=== PATIENT | female | born 1950 | race Caucasian/White ===

== ENCOUNTER 2021-02-24 10:06 | Outpatient (CLI) | payer MEDICARE, SELFPAY ==
--- NOTE | ~2021-02-24 | US_ITS ---
EXAMINATION: US thyroid DATE: 02/24/2021 10:34 INDICATION: Nontoxic multinodular goiter. TECHNIQUE: Multiple ultrasound images of the thyroid were obtained. COMPARISON: Ultrasound 03/13/2018, 02/10/2019 FINDINGS: The right thyroid lobe measures 5.8 x 1.5 x 1.5 cm. The left thyroid lobe measures 4.3 x 1.2 x 2.0 c m. There are greater than 10 scattered nodules in the thyroid, most of which measure less than 1 cm. There is diffuse increased vascularity in the thyroid. In the left thyroid lobe, there is a 15 mm so lid, hypoechoic, [id number]-[id number]-yfop nodule with ill-defined margin without echogenic foci (TI-RADS TR4). This nodule is stable from 03/20/2018 when fine-needle aspiration demonstrated benign pathology. IMPRESSION: 1. Stable multinodular goiter, likely not clinically significant. Reviewed, dictated and finalized at location A.
== END 2021-02-24 10:07 | disposition home or self-care (01) ==
PROVIDERS: PCP Family Medicine; Visit Provider Otolaryngology
DX: E04.2 Nontoxic multinodular goiter (principal)
CPT/HCPCS: 76536

== ENCOUNTER 2021-05-04 15:50 | Outpatient (CLI) | payer MEDICARE, SELFPAY ==
--- NOTE | ~2021-05-04 | MM_ITS ---
EXAMINATION: MM screening [facility] BI w maggy HISTORY: Screening mammogram TECHNIQUE: Craniocaudal and mediolateral oblique 3-D tomosynthesis images were obtained and synthetic 2-D images were generated. CAD analysis was submitted and interpreted. COMPARISON: 11/25/2019, 07/08/2018, 16/04/2018 BREAST PARENCHYMAL COMPOSITION: There are scattered areas of fibroglandular density. FINDINGS: Scattered benign-appearing calcifications are present. There is no evidence of suspicious m ass, calcification, or architectural distortion to suggest malignancy in either breast. There has bee n no suspicious interval change. IMPRESSION: 1. No mammographic evidence of malignancy. 2. Recommend routine screening mammography in one year. BI-RADS Category 2: Benign finding(s). Reviewed, dictated and finalized at location A.
== END 2021-05-04 15:51 | disposition home or self-care (01) ==
LOC: ANHIMG 15:51
PROVIDERS: PCP Family Medicine; Visit Provider Family Medicine
DX: Z12.31 Encounter for screening mammogram for malignant neoplasm of breast (principal)
CPT/HCPCS: 77063; 77067

== ENCOUNTER 2022-01-06 08:35 | Outpatient (CLI) | payer MEDICARE, SELFPAY ==
--- NOTE | ~2022-01-06 | US_ITS ---
EXAMINATION: US abdomen complete EXAM DATE: 01/06/2022 09:08 INDICATION: R10.32 - Left lower quadrant pain. TECHNIQUE: Multiple grayscale and Doppler images of the complete abdomen were obtained (by a technolo gist who performed the scan) and subsequently reviewed. There is no prior study for comparison. FINDINGS: The abdominal aorta is normal in caliber. Visualized portion IVC is patent. The pancreatic head a nd body are normal in appearance. The pancreatic tail is not visualized. The liver has normal echogenicity and contour. There are no focal liver lesions identified. There is no evidence of intrahepatic biliary duct dilation. Portal venous flow was seen in the hepatopedal , normal direction and has normal Doppler waveform. Common bile duct measures 5 mm, which is normal. The gallbladder wall is normal in thickness, with ex pected amount of distention. No sonographic evidence of pericholecystic fluid. Several gallstones i dentified. Technologist performing exam reports patient did not demonstrate sonographic Arias's sig n. Please note that this sign is less reliable in patients who have received pain medication. Right kidney: There is normal contour and echogenicity. It measures 10.2 x 4.1 x 3.9 centimeters. There are no focal renal lesions identified. There is no hydronephrosis. Left kidney: There is normal contour and echogenicity. It measures 11.6 x 5.0 x 4.8 centimeters. Le ft renal cyst measuring 2 cm. There is no hydronephrosis. The spleen measures 8.4 centimeters and is morphologically normal. IMPRESSION: Cholelithiasis. Reviewed, dictated and finalized at location A. OMER SPECIALIST IMPRESSION: Cholelithiasis.
== END 2022-01-06 08:36 | disposition home or self-care (01) ==
LOC: ANHIMG 08:37
PROVIDERS: PCP Family Medicine; Visit Provider Nurse Practitioner
DX: R10.32 Left lower quadrant pain (principal); K80.80 Other cholelithiasis without obstruction
CPT/HCPCS: 76700

== ENCOUNTER 2022-05-31 11:09 | Outpatient (CLI) | payer MEDICARE, SELFPAY ==
--- NOTE | ~2022-05-31 | US_ITS ---
EXAMINATION: US thyroid DATE: 05/31/2022 11:52 INDICATION: Nontoxic multinodular goiter. TECHNIQUE: Multiple ultrasound images of the thyroid were obtained. COMPARISON: Ultrasound 02/24/2021, 08/05/2018, 03/13/2018 FINDINGS: The right thyroid lobe measures 4.9 x 1.5 x 1.8 cm. The left thyroid lobe measures 4.9 x 1.6 x 2.1 c m. There are greater than 10 nodules in the thyroid. In the right thyroid lobe, there is a 10 mm mix ed cystic and solid, hypoechoic, wider than tall nodule with lobulated margin without echogenic foci (TI-RADS TR4), stable from 03/13/18. In the right thyroid lobe, there is a 12 mm mixed cystic and chela d, isoechoic, wider than tall nodule with lobulated margin without echogenic foci (TR4), stable from 03/13/18. In the left thyroid lobe, there is a 13 mm solid, hypoechoic, wider than tall nodule with lo bulated margin without echogenic foci (TR4), stable from 03/20/18 when biopsy was benign. In the left thyroid lobe, there is a 14 mm mixed cystic and solid, hypoechoic, wider than tall nodule with smooth margin without echogenic foci (TR3). IMPRESSION: 1. Multinodular goiter. Consider thyroid ultrasound in 2 years. Reviewed, dictated and finalized at location A.
== END 2022-05-31 11:10 | disposition home or self-care (01) ==
PROVIDERS: PCP Family Medicine; Visit Provider Nurse Practitioner
DX: E04.2 Nontoxic multinodular goiter (principal)
CPT/HCPCS: 76536

== ENCOUNTER 2022-07-05 11:35 | Outpatient (CLI) | payer MEDICARE, SELFPAY ==
--- NOTE | ~2022-07-05 | DEXA_ITS ---
Bone Density Report Name: JOSE A KING Age: 71 Sex: Female Ethnicity: White Date of : 1950 Indication: postmenopausal; screening for osteoporosis; Referring Provider: ADIS BRISCOE Study: Bone densitometry was performed. Exam Date: July 05, 2022 Accession number: [id number] Bone Density: Region BMD T-score Z-score Classification AP Spine(L1-L4) 1.010 -0.3 1.8 Normal Femoral Neck (Left) 0.596 -2.3 -0.4 Osteopenia Total Hip (Left) 0.766 -1.4 0.1 Osteopenia World Health Organization criteria for BMD impression classify patients as: Normal (T-score at or above -1.0), Osteopenia (T-score between -1.0 and -2.5), or Osteoporosis (T-score at or below -2.5). 10-year Fracture Risk(1): Major Osteoporotic Fracture 13% Hip Fracture 3.0% Reported Risk Factors: [place] (), Neck BMD=0.596, BMI=25.4 (1) FRAX(R) Version 3.08. Fracture probability calculated for an untreated patient. Fracture probability may be lower if the patient has received treatment. Clinical Information Provided by Patient: Has used the following medications: Calcium Patient maximum height was 62.5 No regular weight bearing exercise Drinks caffeinated beverages Onset of menses at age 15 Number of children 3 Impression: The patient has low bone mass, based on the Left Femoral Neck T-score. The patient has an estimated ten-year risk of hip fracture of 3% and an estimated ten-year risk of major fracture of 13%, based on the WHO FRAX algorithm. Discussion: BONE DENSITY IS LOW AT ONE OR MORE SKELETAL SITES. THE PATIENT'S BMD AND CLINICAL RISK FACTORS CONTRIBUTE TO THIS PATIENT'S INCREASED RISK OF FRACTURE. This patient's lowest T-score is low at one or more skeletal sites. It meets the World Health Organization's (WHO) criteria for ?low bone mass? (T-score between -1.0 and -2.5). The patient's 10-year risk of hip fracture as calculated by FRAX exceeds the threshold where pharmacological therapy is recommended by the National Osteoporosis Foundation (NOF). However, all treatment decisions require clinical judgment and consideration of individual patient factors, including patient preferences, comorbidities, previous drug use, risk factors not captured in the FRAX model (e.g., frailty, falls, vitamin D deficiency, increased bone turnover, interval significant decline in bone density) and possible under or overestimation of fracture risk by FRAX. The patient should follow a healthful lifestyle (good nutrition with adequate calcium and vitamin D, and appropriate weight-bearing exercise). Follow-Up: Consider a repeat BMD and Vertebral Fracture Assessment (VFA) exam in 2 years or sooner if medically necessary, to reassess this patient's status. Reported by: YASMEEN on 07/05/2022 12:17:00 PM. twila Sanchez
--- NOTE | ~2022-07-05 | MM_ITS ---
EXAMINATION: MM screening [facility] BI w maggy HISTORY: Screening mammogram TECHNIQUE: Craniocaudal and mediolateral oblique 3-D tomosynthesis images were obtained and synthetic 2-D images were generated. CAD analysis was submitted and interpreted. COMPARISON: 05/04/2021, 11/25/2019 bilateral screening mammogram examinations BREAST PARENCHYMAL COMPOSITION: There are scattered areas of fibroglandular density. FINDINGS: Stable small circumscribed low-density bilateral benign appearing intramammary lymph nodes. There is no evidence of suspicious mass, calcification, or architectural distortion to suggest malig iris in either breast. There has been no suspicious interval change. IMPRESSION: 1. No mammographic evidence of malignancy. 2. Recommend routine screening mammography in one year. BI-RADS Category 2: Benign finding(s). Reviewed, dictated and finalized at location A.
== END 2022-07-05 11:36 | disposition home or self-care (01) ==
PROVIDERS: PCP Family Medicine; Visit Provider Nurse Practitioner
DX: Z12.31 Encounter for screening mammogram for malignant neoplasm of breast (principal); Z78.0 Asymptomatic menopausal state; M85.852 Other specified disorders of bone density and structure, left thigh
CPT/HCPCS: 77063; 77067; 77080

== ENCOUNTER 2023-05-30 09:01 | Outpatient (CLI) | payer MEDICARE, SELFPAY ==
--- NOTE | ~2023-05-30 | US_ITS ---
EXAMINATION: US thyroid DATE: 05/30/2023 10:24 INDICATION: Nontoxic multinodular goiter TECHNIQUE: Multiple ultrasound images of the thyroid were obtained. COMPARISON: 05/31/2022 FINDINGS: The right thyroid lobe measures 5.3 x 1.8 x 1.7 cm. The left thyroid lobe measures 5.0 x 2 0.1, 1.6 cm. Again seen are numerous nodules in the left and right thyroid lobes. The 2 largest nodules in th e right thyroid lobe including 1.2 cm wider than tall spongiform nodule with smooth margins with mult iple internal echogenic foci which on cine imaging on the most recent prior study demonstrate promine nt comet tail artifact and a second 1.4 cm wider than tall predominately cystic nodule, both (TI-RADS 1, benign, no FNA recommended) and without significant interval change. The 2 largest nodules in the left thyroid lobe including an unchanged 1.2 cm wider than tall predominant cystic TI RADS 1 nodule and a 1.3 cm solid hypoechoic wider than tall nodule with lobulated margins without echogenic foci (T I-RADS 4, moderately suspicious , FNA if >=1.5 cm, annual followup is >=1 cm) which was previously bi opsied with benign pathology on 03/13/2018. IMPRESSION: 1. Stable appearance of a multinodular goiter. Consider 1-2 year follow-up thyroid ultrasound. Reviewed, dictated and finalized at location A. IMPRESSION: 1. Stable appearance of a multinodular goiter. Consider 1-2 year follow-up thyr oid ultrasound.
== END 2023-05-30 09:02 | disposition home or self-care (01) ==
PROVIDERS: PCP Family Medicine; Visit Provider Nurse Practitioner Family
DX: E04.2 Nontoxic multinodular goiter (principal)
CPT/HCPCS: 76536

== ENCOUNTER 2023-08-09 11:00 | Outpatient (CLI) | payer MEDICARE, SELFPAY ==
--- NOTE | ~2023-08-09 | CT_ITS ---
Non-contrast Head CT History: Headache Technique: Axial non-contrast imaging of the brain was performed. Dose reduction technique was used on this scan by utilizing automated exposure control and iterative reconstruction technique. The dose -length product (DLP) was 605.33 mGy-cm. Findings: There is no evidence of intracranial hemorrhage, mass lesion, or acute infarct. Brain par enchyma appears normal. The ventricles and subarachnoid spaces are normal in size. The calvarium ap pears normal. The visualized paranasal sinuses and mastoid air cells are clear. Impression: No significant abnormality seen. Reviewed, dictated and finalized at location . Impression: No significant abnormality seen.
== END 2023-08-09 11:01 | disposition home or self-care (01) ==
PROVIDERS: PCP Family Medicine; Visit Provider Nurse Practitioner Family
DX: R51.9 Headache, unspecified (principal); G89.29 Other chronic pain
CPT/HCPCS: 70450

== ENCOUNTER 2024-09-03 14:44 | Outpatient (CLI) | payer MEDICARE, SELFPAY ==
--- NOTE | ~2024-09-03 | MM_ITS ---
EXAMINATION: MM screening [facility] BI w maggy HISTORY: Screening TECHNIQUE: Craniocaudal and mediolateral oblique 3-D tomosynthesis images were obtained and synthetic 2-D images were generated. CAD analysis was submitted and interpreted. COMPARISON: Comparison to multiple prior studies sequentially, with oldest reviewed study dated 06/20. BREAST PARENCHYMAL COMPOSITION: Not dense: There are scattered areas of fibroglandular density. FINDINGS: There is no evidence of suspicious mass, calcification, or architectural distortion to sugg est malignancy in either breast. There has been no suspicious interval change. IMPRESSION: 1. No mammographic evidence of malignancy. 2. Recommend routine screening mammography in one year. BI-RADS Category 1: Negative Reviewed, dictated and finalized at location B. SCHOOL FOREIGN LANGUAGE TEACHER
--- NOTE | ~2024-09-03 | DEXA_ITS ---
Bone Density Report Name: JOSE A KING Age: 73 Sex: Female Ethnicity: White Date of : 1950 Indication: osteopenia; cancer; Referring Provider: ALFREDO DISLA Study: Bone densitometry was performed. Exam Date: September 03, 2024 Accession number: [id number] Bone Density: Region BMD T-score Z-score Classification AP Spine(L1-L4) 0.958 -0.8 1.5 Normal Femoral Neck (Left) 0.605 -2.2 -0.2 Osteopenia Total Hip (Left) 0.799 -1.2 0.5 Osteopenia World Health Organization criteria for BMD impression classify patients as: Normal (T-score at or above -1.0), Osteopenia (T-score between -1.0 and -2.5), or Osteoporosis (T-score at or below -2.5). 10-year Fracture Risk(1): Major Osteoporotic Fracture 13% Hip Fracture 3.2% Reported Risk Factors: [place] (), Neck BMD=0.605, BMI=26.2 (1) FRAX(R) Version 3.08. Fracture probability calculated for an untreated patient. Fracture probability may be lower if the patient has received treatment. Previous Exams: Region Exam Age BMD T-score BMD Change BMD Change Date g/cm2 vs Baseline vs Previous AP Spine (L1-L4) 09/03/2024 73 0.958 -0.8 -0.007 (-0.7%) -0.052 (-5.1%) 07/05/2022 71 1.010 -0.3 0.045 (4.7%)* 0.023 (2.3%) 11/25/2019 69 0.988 -0.5 0.023 (2.4%)* 0.023 (2.4%)* 02/08/2016 65 0.965 -0.7 Total Hip(Left) 09/03/2024 73 0.799 -1.2 -0.014 (-1.8%) 0.032 (4.2%)* 07/05/2022 71 0.766 -1.4 -0.047 (-5.8%) -0.094 (-11.0% 11/25/2019 69 0.861 -0.7 0.047 (5.8%)* 0.047 (5.8%)* 02/08/2016 65 0.813 -1.1 *Denotes significance at 95% confidence level, LSC for AP Spine = 0.022 g/cm2, LSC for Total Hip = 0.027 g/cm2 Clinical Information Provided by Patient: Has used the following medications: Vitamin D, Calcium Has the following medical conditions: Cancer Patient maximum height was 62.5 Menopause Age: 53 Drinks caffeinated beverages Onset of menses at age 13 Number of children 3 Impression: The patient has low bone mass, based on the Left Femoral Neck T-score. The patient has an estimated ten-year risk of hip fracture of 3.2% and an estimated ten-year risk of major fracture of 13%, based on the WHO FRAX algorithm. The BMD for the AP Spine (L1-L4) decreased, changing by -5.1% since the last DXA exam. Discussion: BONE DENSITY IS LOW AT ONE OR MORE SKELETAL SITES. THE PATIENT'S BMD AND CLINICAL RISK FACTORS CONTRIBUTE TO THIS PATIENT'S INCREASED RISK OF FRACTURE. This patient's lowest T-score is low at one or more skeletal sites. It meets the World Health Organization's (WHO) criteria for ?low bone mass? (T-score between -1.0 and -2.5). The patient's 10-year risk of hip fracture as calculated by FRAX exceeds the threshold where pharmacological therapy is recommended by the National Osteoporosis Foundation (NOF). However, all treatment decisions require clinical judgment and consideration of individual patient factors, including patient preferences, comorbidities, previous drug use, risk factors not captured in the FRAX model (e.g., frailty, falls, vitamin D deficiency, increased bone turnover, interval significant decline in bone density) and possible under or overestimation of fracture risk by FRAX. The patient should follow a healthful lifestyle (good nutrition with adequate calcium and vitamin D, and appropriate weight-bearing exercise). Follow-Up: Consider a repeat BMD and Vertebral Fracture Assessment (VFA) exam in 2 years or sooner if medically necessary, to reassess this patient's status. Reported by: GIUSEPPE on 09/03/2024 3:17:00 PM. Reviewed, dictated and finalized at location A. JUNG
== END 2024-09-03 14:45 | disposition home or self-care (01) ==
LOC: ANHIMG 14:45
PROVIDERS: PCP Family Medicine; Visit Provider Student in an Organized Health Care Education/Training Program
DX: Z12.31 Encounter for screening mammogram for malignant neoplasm of breast (principal); M85.89 Other specified disorders of bone density and structure, multiple sites; Z78.0 Asymptomatic menopausal state
CPT/HCPCS: 77063; 77067; 77080

== ENCOUNTER 2025-06-15 14:08 | Outpatient (CLI) | payer MEDICARE, SELFPAY ==
--- NOTE | ~2025-06-15 | US_ITS ---
EXAMINATION: US thyroid DATE: 06/15/2025 14:59 INDICATION: Multinodular goiter TECHNIQUE: Multiple ultrasound images of the thyroid were obtained. COMPARISON: 05/30/2023 FINDINGS: The right thyroid lobe measures 4.8 x 1.2 x 1.6 cm. The left thyroid lobe measures 4.5 x 1.6 x 2.3 cm. Again seen are numerous bilateral thyroid nodules which include cystic, mixed solid and cystic, spongiform and solid nodules. The 2 largest nodules in the right thyroid lobe including 1.2 cm wider than tall nearly entirely cystic nodule in the inferior left thyroid lobe. (TI-RADS 1, benign, no FNA recommended). The next largest is a 9-10 mm wider than tall mixed solid and cystic nodule with smooth margins and hypoechoic solid component without echogenic foci (TI-RADS 3, mildly suspicious , FNA if >=2.5 cm, annual followup is >=1.5 cm). No significant interval change in the largest left thyroid nodules which is a 1.3 cm solid hypoechoic nodule with lobular margins and without echogenic foci (TI-RADS 4, moderately suspicious , FNA if >=1.5 cm, annual followup is >=1 cm) and which was present for the biopsied with benign pathology on 03/13/2018. The next largest left thyroid nodules are a 1.2 cm Ti RADS 1 cystic nodule and a 1.0 cm Ti RADS 3 mixed solid and cystic nodule with hypoechoic solid component, smooth margins and without echogenic foci. IMPRESSION: 1. Stable appearance of a multinodular goiter. Consider 1-2 year follow-up thyroid ultrasound. Reviewed, dictated and finalized at location A. IMPRESSION: 1. Stable appearance of a multinodular goiter. Consider 1-2 year follow-up thyr oid ultrasound.
--- OUTSIDE RECORDS SUMMARY | 2025-06-15 15:12 | XMS_ITS | Clinical Summary ---
Author Organization [facility] Address [address] [place] [address] Care Team Providers Care Key Carrier Name Role Phone Anne-Marie Wilson MD Primary Care Provider Source Comments [facility],non-owned Affiliates and Associated Physician Practices is amultiple site organization consisting of ambulatory clinics and hospital sitesin [place], [place], [place] and [place]. This disclosure is being madepursuant to the Care Everywhere program and may not contain all information available regarding this patient. Last updated 18.[facility] Allergies No known active allergies Medications * Be aware that medications may not be up to date on this document. Alwaysverify current medications with the patient. atenolol (TENORMIN) 25 MG tablet Take 25 mg by mouth once daily Active hydroCHLOROthiaz jovanny (HYDRODIURIL) 25 MG tablet Take 25 mg by mouth once daily 08/30/2012 Active FIBER PO Take 1 Tab by mouth once daily Active Calcium Citrate-Vitamin D (CALCIUM + D PO) Take 1 Tab by mouth once daily Active Active Problems Problem Noted Date Diagnosed Date Primary osteoarthritis of right hip Social History Tobacco Use Types Packs/Day Years Used Date Smoking Tobacco: Never Smokeless Tobacco: Never Alcohol Use Standard Drinks/Week Comments Yes 0 (1 standard drink = 0.6 oz pur e alcohol) Comments No Sex and Gender Information Value Date Recorded Sex Assigned at Not on file Legal Sex Female 9:27 AM PATIENT INTAKE COORDINATOR Gender Identity Not on file Sexual Orientation Not on file Last Filed Vital Signs Vital Sign Reading Time Taken Comments Blood Pressure 132/61 11/29/2016 8:15 AM PATIENT INTAKE COORDINATOR Pulse 78 11/29/2016 8:15 AM PATIENT INTAKE COORDINATOR Temperature 37.1 C (98.7 F) 11/29/2016 8:15 AM PATIENT INTAKE COORDINATOR Respiratory Rate 18 11/29/2016 8:15 AM PATIENT INTAKE COORDINATOR Oxygen Saturation 99% 11/29/2016 8:15 AM PATIENT INTAKE COORDINATOR Inhaled Oxygen Concentration - - Weight 62.6 kg (138 lb) 11/21/2018 9:32 AM PATIENT INTAKE COORDINATOR Height 157.5 cm (5' 2) 11/21/2018 9:32 AM PATIENT INTAKE COORDINATOR Body Mass Index 25.24 11/21/2018 9:32 AM PATIENT INTAKE COORDINATOR Plan of Treatment Health Maintenance Due Date Last Done Comments BONE DENSITY TESTING 1950 COLOGUARD (AGES 45-75) - COL ON CA SCREENING 1950 COLON MONITORING 1950 COLONOSCOPY - COLON CA SCREENING 1950 CT COLONOGRAPHY - COLON CA SCREENING 1950 Colorectal Cancer Screening 1950 FIT - COLON CA SCREENING 1950 FLEX SIG - COLON CA SCREENING 1950 LIPID TESTING 1950 MAMMOGRAM 1950 HEPATITIS C SCREENING 10/02/1969 DTAP/TDAP/TD VACCINES (1 - Tdap) 1970 PNEUMOCOCCAL VACCINE 50+ (1 of 1 - PCV) 2001 ZOSTER VACCINE (1 of 2) 2001 COVID-19 VACCINE ( - 2023-2 5 season) 2024 DEPRESSION SCREENING 10/29/2024 INFLUENZA VACCINE (#1) 2025 Respiratory Syncytial Virus (RSV) Vaccine Pt: or over 60 yrs (1 - 1-dose 75+ series) 2026 HEPATITIS B VACCINE Aged Out No longe r eligible based on patient's age to complete this topic HIB VACCINE Aged Out No longer eligi ble based on patient's age to complete this topic HPV VACCINE Aged Out No longer eligi ble based on patient's age to complete this topic MENINGOCOCCAL (Group B) VACC INE SHARED DECISION-MAKING Aged Out No longer eligibl e based on patient's age to complete this topic MENINGOCOCCAL GROUPS A/C/Y/W VACCINE Aged Out No longer eligible b ased on patient's age to complete this topic Medical Devices Implanted Type Area Orchestra Leader Device Identifier Shelf Expiration Date Model / Serial / Lot Acetabular System With Holes Implanted:Qty: 1 on 11/28/2016 by Sarthak Banuelos MD at [facility] Right: Hip [employer] 03/28/2026 / / [id number] Bone Screw Implanted:Qty: 1 on 11/28/2016 by Sarthak Banuelos MD at [facility] Right: Hip [employer] 07/28/2026 / / [id number] Acetabular System Standard Crosslinked Polyethylene Implanted:Qty: 1 on 11/28/2016 by Sarthak Banuelos MD at [facility] Right: Hip [employer] 01/26/2021 / / [id number] Femoral Head Implanted:Qty: 1 on 11/28/2016 by Sarthak Banuelos MD at [facility] Right: Hip [employer] / / [id number] Hip Stem Implanted:Qty: 1 on 11/28/2016 by Sarthak Banuelos MD at [facility] Right: Hip [employer] 04/27/2026 [id number] / / [id number] Cong Uncem Hip All Inclusive Implanted:Qty: 1 on 11/28/2016 by Sarthak Banuelos MD at [facility] [employer] BILL ONLY [employer] HIP ALL INCLUSIVE LEXIE / / Insurance MEDICARE ANTHEM MEDICARE SUPPLEMENT PAYOR GENERIC MEDICARE [facility] Advance Directives * Full Code (Latest Code Status on File) Date Activated Date Inactivated Comments 11/28/2016 10:44 AM 11/29/2016 3:06 PM Care Teams Key Carrier Relationship Specialty Start Date End Date Anne-Marie Wilson MD [address] [place] [address] PCP - General 11/24/19
--- OUTSIDE RECORDS SUMMARY | 2025-06-15 15:12 | XMS_ITS | Encounter Summary ---
Author Organization [facility] Address [address] [facility] [place] [address] Care Team Providers Care School Examiner Name Role Phone Anne-Marie Wilson MD Primary Care Provider Encounter Details Date Type Department Care Team (Late st Contact Info) Description 01/07/2020 Lab Requisition [facility] [address] [facility] [place] [address] [place] [place] [address] Social History Tobacco Use Types Packs/Day Years Used Date Smoking Tobacco: Never Smokeless Tobacco: Never Alcohol Use Standard Drinks/Week Comments Yes 0 (1 standard drink = 0.6 oz pur e alcohol) Comments No Sex and Gender Information Value Date Recorded Sex Assigned at Not on file 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 Answer Date of Assessment Author No 11/28/2016 6:47 AM Nolan Douglas RN * Is person blind or have serious difficulty seeing? Answer Date of Assessment Author No 11/28/2016 6:47 AM Nolan Douglas RN * Does person have serious difficulty walking/climbing stairs? Answer Date of Assessment Author No 11/28/2016 6:47 AM Nolan Douglas RN * Does person have difficulty dressing/bathing? Answer Date of Assessment Author No 11/28/2016 6:47 AM Nolan Douglas RN * Does person have difficulty doing errands alone? Answer Date of Assessment Author No 11/28/2016 6:47 AM Nolan Douglas RN documented as of this encounter Mental Status * Does person have difficulty concentrating/remembering/making decisions? Answer Entry Date Author No 11/28/2016 6:47 AM Nolan Douglas RN documented in this encounter Plan of Treatment Not on file documented as of this encounter Procedures Procedure Name Priority Date/Time Associated Diagnosis Comments DERMATOPATHOLOGY Routine 01/06/2020 12:0 0 AM CDT documented in this encounter Results * DERMATOPATHOLOGY (01/06/2020 12:00 AM CDT) Case Report Dermatopathology Report Case: [id number] Authorizing Provider: Yayo Ga MD Collected: 01/06/2020 12:00 AM Ordering Location: [facility] Received: 01/07/2020 01:49 PM Pathologist: Evy Gould MD Specimens: A) - Skin, right zygoma B) - Skin, left extensor mid forearm 0 4:40 PM CDT DERMATOPATHOLOGY LABORATORY Final Diagnosis Specimen A. 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 B: R/O BCC. 0 4:40 PM CDT DERMATOPATHOLOGY LABORATORY Gross Description Specimen A: Received is one formalin filled container labeled with the patient's name and designated right zygoma. The specimen consists of a shave biopsy measuring [id number]. Jar 0. Specimen B: Received is one formalin filled container labeled with the patient's name and designated left extensor mid forearm. The specimen consists of a shave biopsy measuring [id number]. Jar 0. 0 4:40 PM CDT DERMATOPATHOLOGY LABORATORY Microscopic Description Specimen A. SKIN, right zygoma: There is orthokeratosis. There is a slight increase in epidermal thickness with lentiginous buds of hyperpigmented keratinocytes. The number of melanocytes, highlighted by Sox-10 immunohistochemical staining, is only mildly increased. In the dermis, there is basophilic degeneration of elastic fibers. Specimen B. SKIN, left extensor mid forearm: The epidermis shows parakeratosis, full thickness disorderly maturation of keratinocytes, mitoses at different levels, and dyskeratotic cells. 0 4:40 PM CDT DERMATOPATHOLOGY LABORATORY Disclaimer An external and internal positive and negative controls are appropriate for the histochemical, immunohistochemical and immunofluorescence stain(s) in this case (if any), except where stated explicitly. The performance characteristics of the stain(s) cited in this report were developed and its performance characteristic determined by the Dermatopathology Laboratory at [facility], directed by Dr. Rachel Winston. These tests need not be, and therefore are not, approved by the [place] Food and Drug Administration. The tests are used for clinical purposes. Billing Codes Specimen Charges Stain Charges 13321 10414 1 1 48214 1 0 4:40 PM CDT DERMATOPATHOLOGY LABORATORY Embedded Images 0 4:40 PM CDT DERMATOPATHOLOGY LABORATORY Pathology/Cytology TISSUE SPECIMEN FROM SKIN / Unknown 01/06/2020 01/07/2020 1:49 PM CDT Miscellaneous samples (specimen) TISSUE SPECIMEN FROM SKIN / Unknown 01/06/2020 01/07/2020 1:49 PM CDT Yayo Ga MD LAB - PATHOLOGY/CYTOLOGY ORD ERABLES Final Result DERMATOPATHOLOGY LABORATORY [facility] - Department of Dermatology [facility] [facility], [address] Lab [address] [phone] documented in this encounter Visit Diagnoses Not on filedocumented in this encounter Care Teams School Examiner Relationship Specialty Start Date End Date Anne-Marie Wilson MD [address] [place] [address] PCP - General 11/24/19 documented as of this encounter
--- OUTSIDE RECORDS SUMMARY | 2025-06-15 15:12 | XMS_ITS | Clinical Summary ---
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 Gender Identity Not on file Sexual Orientation Not on file Plan of Treatment Health Maintenance Due Date Last Done Comments Hepatitis C Virus (HCV) Screening 1950 Cologuard 1996 Colonoscopy 1996 Colorectal Cancer Screening 1996 Immunochemical Fecal Occult Blood 1996 Zoster Immunization (1 of 2) 2001 Pneumococcal Immunization (5 0+ years) (2 of 2 - PCV20 or PCV21) 01/08/2021 01/09/2020 SARS-COV-2 Immunization (1 - season) 2024 Influenza Immunization (#1) 2025 08/23/2020 Respiratory Syncytial Virus (RSV) Immunization (Adult) (1 - 1-dose 75+ series) 2026 DTaP/Tdap/Td Immunization Discontinued 01/20/2015 TdaP Immunization Completed 01/20/2015 Pneumococcal Immunization Combined Discontinued 2019 Hepatitis B Immunization Aged Out No longer eligible based on patient's age to complete this topic Human Papillomavirus (HPV) Immunization Aged Out No longer eligible b ased on patient's age to complete this topic Meningococcal Immunization (ACWY) Aged Out No longer eligible based on patient's age to complete this topic Rotavirus Immunization Aged Out No lo nger eligible based on patient's age to complete this topic
--- OUTSIDE RECORDS SUMMARY | 2025-06-15 15:13 | XMS_ITS | Clinical Summary ---
Author Organization [facility] Address [address] [place] [id number] Care Team Providers Care Security And Compliance Analyst Name Role Phone Unavailable Primary Care Provider Unavailabl e Social History Tobacco Use Types Packs/Day Years Used Date Smoking Tobacco: Never Assessed Comments Unknown Sex and Gender Information Value Date Recorded Sex Assigned at Not on file Legal Sex Female 5:30 PM CDT Gender Identity Not on file Sexual Orientation Not on file Plan of Treatment Health Maintenance Due Date Last Done Comments Colorectal Cancer Screening Colonoscopy (10 Years) 1951 Hepatitis C 1969 DTaP, Tdap and Td Vaccines ( 1 - Tdap) 1970 Mammogram Screening 1991 Pneumococcal Vaccine: 50+ Ye ars (1 of 1 - PCV) 2001 Zoster Vaccines (1 of 2) 2001 Dexa Scan (General) 2016 COVID-19 Vaccine ( - 2023-2 5 season) 2024 RSV Immunization or 60+ Years (1 - 1-dose 75+ series) 2026 Meningococcal B Vaccine Aged Out No l onger eligible based on patient's age to complete this topic Meningococcal Vaccine Aged Out No david taco eligible based on patient's age to complete this topic RSV Immunizations Under 20 Months Aged Out No longer eligible based on patient's age to complete this topic
== END 2025-06-15 14:09 | disposition home or self-care (01) ==
PROVIDERS: PCP Nurse Practitioner Family; Visit Provider Nurse Practitioner Family
DX: E04.2 Nontoxic multinodular goiter (principal)
CPT/HCPCS: 76536